=== PATIENT | female | born 2000 | race Caucasian/White ===

== ENCOUNTER 2018-03-06 12:11 | Emergency (ER) | payer BC, OTHER ==
--- NOTE | 2018-03-06 12:48 | EDM.PDOC ---
ED HPI GENERAL MEDICAL PROBLEM - General Chief Complaint: Lower Extremity Injury/Pain Stated Complaint: FT FOOT Time Seen by Provider: 03/06/18 12:35 Source of Information: Reports: Patient History Limitations: Reports: No Limitations - History of Present Illness INITIAL COMMENTS - FREE TEXT/NARRATIVE: This 17 yo female patient reports to the ED with right foot pain. The patient reports that she dropped an end table on her foot last Tuesday while she was unpacking the end table. The patient reports she was having increased pain with palpation and pressure on the foot. The patient reports she also has some pain when she curls her toes under. The patient does have bruising over the area of concern. Onset Date: 02/28/18 Duration: Constant Location: Reports: Lower Extremity, Right Quality: Reports: Ache, Dull Severity: Moderate Improves with: Reports: None Worsens with: Reports: None Context: Reports: Other Associated Symptoms: Reports: No Other Symptoms Right Feet Pain Score (Numeric/FACES): 5 - Related Data Allergies Allergy/AdvReac Type Severity Reaction Status Date / Time Penicillins Allergy Hives Verified 03/06/18 12:24 Home Meds: Home Meds . [No Known Home Meds] 03/06/18 [History] Past Medical History - Past Health History Medical/Surgical History: Denies Medical/Surgical History Social & Family History - Tobacco Use Smoking Status *Q: Never Smoker - Caffeine Use Caffeine Use: Reports: Soda - Recreational Drug Use Recreational Drug Use: No Review of Systems - Review of Systems Review Of Systems: ROS reveals no pertinent complaints other than HPI. ED EXAM, GENERAL - Physical Exam Exam: See Below Exam Limited By: No Limitations General Appearance: Alert, WD/WN, Mild Distress Eye Exam: Bilateral Eye: Normal Inspection, PERRL Ears: Normal External Exam Nose: Normal Inspection Throat/Mouth: Normal Lips, Normal Teeth Head: Atraumatic, Normocephalic Neck: Full Range of Motion Respiratory/Chest: No Respiratory Distress Cardiovascular: Normal Peripheral Pulses, Regular Rate, Rhythm (Female) Exam: Deferred Rectal (Female) Exam: Deferred Extremities: Other (The patient has bruising over the right 2nd-4th distal metatarsal bones. The patient has increased pain with palpation of the area. CMS distal to the area of injury is intact. ) Neurological: Alert, Oriented, CN II-XII Intact, Normal Cognition, No Motor/ Sensory Deficits Psychiatric: Normal Affect, Normal Mood Lymphatic: No Adenopathy Course - Vital Signs Last Recorded V/S: Last Vital Signs Temp 36.9 C 03/06/18 12:17 Pulse 105 H 03/06/18 12:17 Resp 15 03/06/18 12:17 BP 137/82 03/06/18 12:17 Pulse Ox 100 03/06/18 12:17 - Orders/Labs/Meds Orders: Active Orders 24 hr Category Date Time Status Foot Comp Min 3V Rt [CR] Urgent Exams 03/06/18 12:36 Ordered DME for Discharge [COMM] Urgent Oth 03/06/18 13:33 Ordered Departure - Departure Time of Disposition: 13:34 Disposition: Home, Self-Care 01 Condition: Fair Clinical Impression: Stress fracture of foot Qualifiers: Encounter type: initial encounter Laterality: right Qualified Code(s): M84.374A - Stress fracture, right foot, initial encounter for fracture - Discharge Information *PRESCRIPTION DRUG MONITORING PROGRAM REVIEWED*: Not Applicable *COPY OF PRESCRIPTION DRUG MONITORING REPORT IN PATIENT [place]: Not Applicable Instructions: Stress Fracture Referrals: Christina Geiger [employer] [Primary Care Provider] - Forms: ED Department Discharge Care Plan Goals: The patient was advised of the examination and x-ray results during the visit. The patient was discharged in a walking boot. The patient should wear the boot for the next 2 weeks then go back to normal activities. If the patient has any additional symptoms or concerns, the patient should follow-up with her primary care facility or return to the emergency department. - My Orders Last 24 Hours: My Active Orders 03/06/18 12:36 Foot Comp Min 3V Rt [CR] Urgent 03/06/18 13:33 DME for Discharge [COMM] Urgent - Assessment/Plan Last 24 Hours: My Active Orders 03/06/18 12:36 Foot Comp Min 3V Rt [CR] Urgent 03/06/18 13:33 DME for Discharge [COMM] Urgent
== END 2018-03-06 13:50 | disposition home or self-care (01) ==
LOC: SUPCPDRO 12:11 → DL.ED 12:11
DX: M84.374A Stress fracture, right foot, initial encounter for fracture (principal); W20.8XXA Other cause of strike by thrown, projected or falling object, initial encounter; Z88.0 Allergy status to penicillin
CPT/HCPCS: 73630-RT; 99283